=== PATIENT | male | born 1980 | race Caucasian/White ===

== ENCOUNTER → 2020-10-17 12:04 | Outpatient (BNVA) | payer MEDICAID, SELFPAY | PROVIDERS: Family Provider Family Medicine; Visit Provider Psychiatry & Neurology Psychiatry | DX: F43.21 Adjustment disorder with depressed mood (principal); Z63.4 Disappearance and death of family member | CPT/HCPCS: 90792 ==

== ENCOUNTER → 2021-05-16 11:05 | Outpatient (BNVA) | payer BC, MEDICAID, SELFPAY | PROVIDERS: Family Provider Family Medicine; PCP Family Medicine; Visit Provider Emergency Medicine | DX: R00.2 Palpitations (principal); F17.200 Nicotine dependence, unspecified, uncomplicated; I49.3 Ventricular premature depolarization | CPT/HCPCS: 80053; 80061; 83880; 84443; 85025 ==

== ENCOUNTER → 2021-05-17 09:33 | Outpatient (BNVA) | payer BC, MEDICAID, SELFPAY | PROVIDERS: Family Provider Family Medicine; PCP Family Medicine; Visit Provider Family Medicine | DX: E11.9 Type 2 diabetes mellitus without complications (principal) | CPT/HCPCS: 83036 ==

== ENCOUNTER → 2021-08-19 09:20 | Outpatient (BNVA) | payer BC, MEDICAID, SELFPAY | PROVIDERS: Family Provider Family Medicine; PCP Family Medicine; Visit Provider Family Medicine | DX: E11.65 Type 2 diabetes mellitus with hyperglycemia (principal); I10 Essential (primary) hypertension | CPT/HCPCS: 80048; 83036 ==

== ENCOUNTER 2021-11-01 08:50 | Outpatient (CLI) | payer BC, MEDICAID, SELFPAY ==
[2021-11-01 10:29] VITALS: BMI 29.5
--- NOTE | 2021-11-01 10:31 | ECG_ITS ---
[facility] Test Date: 2021-11-01 Pat Name: Bruno Prince Department: Room: Gender: Male Snapper On: Zara Miles : 1980 Requested By: Jessica Browning Order Number: [id number] Brewer MD: Jessica Browning M.D. Interpretive Statements NAME OF STUDY: TREADMILL STRESS TEST INDICATION: Chest Pain Baseline blood pressure of 133/69 mm Hg, heart rate of 72 beats per minute and oxygen saturation of 96%. EKG showed sinus rhythm, normal axis with ST depression and T wave inversion in lead II, III, aVF. The patient exercised for 10 minutes 33 seconds on a standard Jg protocol. Patient attained a maximum heart rate of 165 beats per minute(91% of the maximum predicted heart rate) with a blood pressure at the peak exercise of 184/71 mm Hg. The EKG at the peak exercise revealed no significant ST-T wave changes. T wave becomes upright in lead II. Patient did not have any chest pain or any significant arrhythmis with the exercise. The study was terminated due to maximal effort and exertional fatigue. During the recovery phase, there were no new changes. Blood pressure at the end of the recovery phase was 128/69 mm Hg with a heart rate of 84 beats per minute and oxygen saturation of 92%. CONCLUSION: 1. Normal EKG response to treadmill exercise. Interpretation limited by baseline ST-T wave changes in inferior leads. 2. No exercise-induced chest pain or cardiac arrhythmia. 3. Excellent exercise tolerance, attained a maximum of 13.5 METs. Maximum VO2 of 47.3 mL/kg/min. 4. Baseline normal blood pressure with normal response to exercise. 5. Perfusion scan will be documented separately. Electronically Signed On 11-04-2021 18:25:45 CDT by Jessica Browning M.D. [id number]
[2021-11-01 11:11] VITALS: BP 121/63; PULSE 87
== END 2021-11-01 08:51 | disposition home or self-care (01) ==
PROVIDERS: Family Provider Family Medicine; PCP Family Medicine; Visit Provider Internal Medicine Cardiovascular Disease
DX: R07.9 Chest pain, unspecified (principal); R00.2 Palpitations; I49.3 Ventricular premature depolarization; Z82.49 Family history of ischemic heart disease and other diseases of the circulatory system; I10 Essential (primary) hypertension; E11.65 Type 2 diabetes mellitus with hyperglycemia; F51.02 Adjustment insomnia; E78.2 Mixed hyperlipidemia; F17.200 Nicotine dependence, unspecified, uncomplicated
CPT/HCPCS: 93017

== ENCOUNTER 2021-11-01 08:59 | Outpatient (CLI) | payer BC, MEDICAID, SELFPAY ==
--- NOTE | 2021-11-01 09:10 | USCV_ITS ---
Bruno Prince Age: 41 Gender: M : 1980 Exam Date: 11/01/2021 09:36 Ordering Phys: Jessica Browning MD ([email or web address]) Technologist: Danyell Kenyon Exam Location: [facility] – [place] Indication: IRREGULAR HEART RATE BP: 120 / 68 HR: 66 Rhythm: Sinus Technical Quality: Adequate MEASUREMENTS (Male / Female) Normal Values 2D ECHO LV Diastolic Diameter PLAX 5.1 cm 4.2 - 5.9 / 3.9 - 5.3 cm LV Systolic Diameter PLAX 2.8 cm LV Chamber Size 3.6 cm IVS Diastolic Thickness 1.1 cm 0.6 - 1.0 / 0.6 - 0.9 cm IVS Systolic Thickness 1.2 cm LVPW Diastolic Thickness 1.1 cm 0.6 - 1.0 / 0.6 - 0.9 cm LVPW Systolic Thickness 1.6 cm RV Chamber Size 3.6 cm LVOT Diameter 2.0 cm LV Ejection Fraction 2D Teich 76.4 % LV Ejection Fraction MOD 2C 57.1 % LV Ejection Fraction 2C AL 53.0 % LA Diameter 3.5 cm LA Width 4.2 cm LA Height 3.6 cm RA Width 3.7 cm RA Height 4.1 cm Aorta at Sinotubular Diameter 2.6 cm IVC Diameter 1.1 cm M-MODE Aortic Annulus Diameter 3.0 cm LA Ao Ratio MM 1.2 MV E Point Septal Separation 0.3 cm DOPPLER AV Peak Velocity 110.0 cm/s LVOT Peak Velocity 94.0 cm/s AV Area Cont Eq vti 3.0 cm squared AV Area Cont Eq pk 2.8 cm squared MV Area PHT 4.9 cm squared Mitral E to A Ratio 0.9 MV E' Velocity 41.5 cm/s Mitral E to MV E' Ratio 9.5 Mitral E to LV E' Lateral Ratio 8.5 Mitral E to LV E' Septal Ratio 10.9 TR Peak Velocity 186.9 cm/s TR Peak Gradient 14.0 mmHg TR Mean Velocity 148.9 cm/s TR Mean Gradient 9.5 mmHg TR Velocity Time Integral 44.4 cm TV Peak E Velocity 53.0 cm/s Right Atrial Pressure 3.0 mmHg Pulmonary Artery Systolic Pressu 17.0 mmHg PV Peak Velocity 65.0 cm/s RV Acceleration Time 0.1 s RV Ejection Time 0.4 s RV AcT/ET 0.4 FINDINGS Left Ventricle Normal left ventricular size, systolic function and wall thickness, with no regional wall motion abnormalities. Left ventricular ejection fraction is estimated at 57 %. Normal diastolic function. Right Ventricle Normal right ventricular size and systolic function. RVSP could not be calculated due to incomplete tricuspid regurgitation velocity profile. Right Atrium Normal right atrial size. Right atrial pressure estimated at 3 mmHg. Left Atrium Normal left atrial size. Mitral Valve Structurally normal mitral valve. No mitral valve stenosis. Trace mitral valve regurgitation. Aortic Valve Structurally normal trileaflet aortic valve. No aortic valve stenosis. No aortic valve regurgitation. Tricuspid Valve Structurally normal tricuspid valve. No tricuspid valve stenosis. Trace tricuspid valve regurgitation. Pulmonic Valve Pulmonic valve not well visualized. No pulmonary valve stenosis. Trace pulmonary valve regurgitation. Pericardium No pericardial effusion. Aorta Normal size aortic root and proximal ascending aorta. Normal- sized inferior vena cava with greater than 50% respiratory variation. CONCLUSIONS 1. Normal left ventricular size, systolic function and wall thickness, with no regional wall motion abnormalities. Left ventricular ejection fraction is estimated at 57 %. Normal diastolic function. 2. Normal right ventricular size and systolic function. 3. No significant valvular abnormality. 4. No prior similar studies to compare. Jessica Browning MD (Electronically Signed) Final Date: 04 Nov 2021 18:43 S
== END 2021-11-01 09:00 | disposition home or self-care (01) ==
PROVIDERS: Family Provider Family Medicine; PCP Family Medicine; Visit Provider Internal Medicine Cardiovascular Disease
DX: I25.10 Atherosclerotic heart disease of native coronary artery without angina pectoris (principal)
CPT/HCPCS: 93306

== ENCOUNTER → 2021-11-11 09:53 | Outpatient (BNVA) | payer BC, MEDICAID, SELFPAY | PROVIDERS: Family Provider Family Medicine; PCP Family Medicine; Visit Provider Family Medicine | DX: I10 Essential (primary) hypertension (principal); G47.00 Insomnia, unspecified; T78.40XA Allergy, unspecified, initial encounter; E78.2 Mixed hyperlipidemia; E11.65 Type 2 diabetes mellitus with hyperglycemia | CPT/HCPCS: 83036 ==

== ENCOUNTER → 2022-04-07 08:55 | Outpatient (BNVA) | payer BC, MEDICAID, SELFPAY | PROVIDERS: Family Provider Family Medicine; PCP Family Medicine; Visit Provider Family Medicine | DX: T78.40XA Allergy, unspecified, initial encounter (principal); E78.2 Mixed hyperlipidemia; I10 Essential (primary) hypertension; E11.9 Type 2 diabetes mellitus without complications; G47.00 Insomnia, unspecified; R00.2 Palpitations; F41.1 Generalized anxiety disorder; E11.65 Type 2 diabetes mellitus with hyperglycemia; K04.7 Periapical abscess without sinus; T78.40XD Allergy, unspecified, subsequent encounter; F51.02 Adjustment insomnia | CPT/HCPCS: 80053; 80061; 83036; 84443 ==

== ENCOUNTER → 2022-12-26 11:02 | Outpatient (BNVA) | payer BC, MEDICAID, SELFPAY | PROVIDERS: Family Provider Family Medicine; PCP Family Medicine; Visit Provider Family Medicine | DX: E11.65 Type 2 diabetes mellitus with hyperglycemia (principal); N50.89 Other specified disorders of the male genital organs; R53.83 Other fatigue; R39.11 Hesitancy of micturition; Z22.322 Carrier or suspected carrier of Methicillin resistant Staphylococcus aureus | CPT/HCPCS: 80053; 80061; 81000; 83036; 84153; 84443; 85025 ==

== ENCOUNTER → 2023-02-27 08:52 | Outpatient (BNVA) | payer BC, MEDICAID, SELFPAY | PROVIDERS: Family Provider Family Medicine; PCP Family Medicine; Referring Provider Family Medicine; Visit Provider Family Medicine | DX: E11.65 Type 2 diabetes mellitus with hyperglycemia (principal) | CPT/HCPCS: 83036 ==

== ENCOUNTER → 2023-04-02 11:02 | Outpatient (BNVA) | payer BC, MEDICAID, SELFPAY | PROVIDERS: Family Provider Family Medicine; PCP Family Medicine; Visit Provider Family Medicine | DX: E11.9 Type 2 diabetes mellitus without complications (principal); G47.00 Insomnia, unspecified; R00.2 Palpitations; F41.1 Generalized anxiety disorder; I10 Essential (primary) hypertension; E11.65 Type 2 diabetes mellitus with hyperglycemia; E78.2 Mixed hyperlipidemia; R53.83 Other fatigue; G47.10 Hypersomnia, unspecified | CPT/HCPCS: 82607; 82652; 83036; 84402; 84403 ==

== ENCOUNTER 2023-04-09 07:37 | Emergency (ER) | payer BC, MEDICAID, SELFPAY ==
[2023-04-09 07:46] VITALS: BP 133/76; PULSE 91; RESP 16; TEMP 36.9; O2SAT 94
--- NOTE | 2023-04-09 07:51 | ED_ITS ---
HPI - Abdominal Pain General: Chief Complaint: Abdominal Pain Stated Complaint: abd pain Time Seen by Provider: 04/09/23 07:40 Source: patient Mode of arrival: ambulatory History of Present Illness: 42-year-old male presents emergency clinic and left lower quadrant abdominal pain that began yesterday. No medication melena hematemesis cough cramps. No previous abdominal surgeries. He has had issues with diverticulitis in the past. Has not previously had a colonoscopy. No hematochezia melena hematemesis cough tremors noted dysuria urgency frequency or hematuria. No vomiting associated with this. MD elicited complaint: abdominal pain Onset (ago): day(s) (1) Pain Consistency: constant Location: LLQ Severity: mild Quality: cramping Radiation: none Exacerbating factors: nothing Relieving factors: nothing Associated Symptoms: Reports bloating, GI cramping, nausea, poor appetite and vomiting; Denies anorexia, belching, change in bowel habits, change in stool character, chills, coffee ground emesis, constipation, diarrhea, dyspepsia, dysuria, excessive flatus, fever(s), heartburn, hematochezia, hematuria, hematemesis, fecal incontinence, loose stools, melena and syncope Review of Systems 2 Const: Denies: fever(s) or chills Card: Denies: chest pain or syncope Resp: Denies: dyspnea GI: Reports: abdominal pain, nausea, vomiting, bloating and GI cramping; Denies: hematemesis, coffee ground emesis, heartburn, diarrhea, constipation, belching, excessive flatus, fecal incontinence, change in bowel habits, change in stool character, hematochezia or melena : Denies: dysuria, urinary frequency, urinary urgency or hematuria Musc: Denies: neck pain or back pain Skin/Breast: Denies: rash PFSH ED PFSH: Medical History Diabetes mellitus Heart palpitations Hyperlipemia, mixed Insomnia PVC (premature ventricular contraction) Smoking Family History Father CAD (coronary artery disease), Onset Age: 49 CABG, at 64 CHF exacerbation Social History Smoking and tobacco/nicotine status: former use of tobacco/nicotine Physical Exam Const: GENERAL APPEARANCE: cooperative and comfortable ORIENTATION/CONSCIOUSNESS: Yes awake, Yes oriented to person, Yes oriented to place and Yes oriented to time HENMT: COMMON NORMALS: normocephalic, atraumatic and hearing grossly normal bilaterally HEAD & SCALP: normocephalic and atraumatic Resp: COMMON NORMALS: normal respiratory effort, No retractions, No use of accessory muscles and clear to auscultation bilaterally AUSCULTATION: clear to auscultation bilaterally Cardio: COMMON NORMALS: regular rate, regular rhythm and No murmurs present (Cardio) RATE: regular rate RHYTHM: regular rhythm GI: COMMON NORMALS: No hepatosplenomegaly present AUSCULTATION: Yes normoactive bowel sounds PALPATION: Yes Tenderness to palpation present (GI) Details: LLQ, No Guarding due to palpation present (GI) and Yes No hepatosplenomegaly present Extremity: COMMON NORMALS: normal to inspection, capillary refill normal, no clubbing, cyanosis or edema, no calf tenderness and no pedal edema Neuro: SENSORIUM/ORIENTATION: Yes oriented to person, Yes oriented to place and Yes oriented to time Skin: COMMON NORMALS: no rashes or lesions noted GENERAL SKIN EXAM: no rashes or lesions noted Course Vital Signs: Vital signs: Vital Signs Temperature 98.4 F 04/09/23 07:46 Pulse Rate 93 04/09/23 08:00 Respiratory Rate 18 04/09/23 08:00 Blood Pressure 133/76 04/09/23 08:00 Pulse Oximetry 96 04/09/23 08:00 Oxygen Delivery Me thod Room Air 04/09/23 08:00 MDM - Abdominal Pain Medical Decision Making No peritoneal signs on exam white count not elevated. Treat for diverticulitis based on history and clinical exam recommend that he follow-up with his primary care doctor for possible colonoscopy. Start Cipro and Flagyl. Clear liquid diet for 48 hours promethazine hydrocodone for pain nausea and vomiting as needed recheck for any worsening or changes symptoms. Differential Diagnosis Likely abdominal pain, acute appendicitis, calculus of kidney, constipation, diverticulitis, gastroenteritis, pancreatitis and small bowel obstruction Medical Records I reviewed the patient's medical records. Lab Data I reviewed the patient's lab results. 04/09/23 07:48 04/09/23 07:48 Labs/Radiology: Laboratory Results WBC 10.84 10^3/uL (3.29-11.43) 04/09/23 07:48 RBC 5.26 10^6/uL (3.85-5.65) 04/09/23 07:48 Hgb 14.40 g/dL (11.27-16.99) 04/09/23 07:48 Hct 44.4 % (37-53) 04/09/23 07:48 MCV 84.4 fl (82-101) 04/09/23 07:48 MCH 27.4 pg (27-33) 04/09/23 07:48 MCHC 32.4 g/dL (30-55) 04/09/23 07:48 RDW 12.6 % (12.1-15.1) 04/09/23 07:48 Plt Count 266 10^3/cmm (157-399) 04/09/23 07:48 MPV 9.2 fL (7.4-10.4) 04/09/23 07:48 Neut % (Auto) 76.9 % 04/09/23 07:48 Lymph % (Auto) 11.7 % 04/09/23 07:48 [place] % (Auto) 10.3 % 04/09/23 07:48 Eos % (Auto) 0.1 % 04/09/23 07:48 Baso % (Auto) 0.4 % 04/09/23 07:48 Neut # (Auto) 8.33 10^3/uL (1.8-7.7) H 04/09/23 07:48 Lymph # (Auto) 1.3 10^3/uL (0.8-4.8) 04/09/23 07:48 [place] # (Auto) 1.1 10^3/uL (0.2-0.9) H 04/09/23 07:48 Eos # (Auto) 0.0 10^3/uL (0.0-0.8) 04/09/23 07:48 Baso # (Auto) 0.0 10^3/uL (0.0-0.1) 04/09/23 07:48 Nucleated RBC % (auto) 0 % 04/09/23 07:48 Nucleated RBCs # 0.0 /100WBC 04/09/23 07:48 Sodium 132 mmol/L (136-145) L 04/09/23 07:48 Potassium 4.4 mmol/L (3.5-5.1) 04/09/23 07:48 Chloride 96 mmol/L (98-107) L 04/09/23 07:48 Carbon Dioxide 23 mmol/L (22-29) 04/09/23 07:48 Anion Gap 17.4 (5-19) 04/09/23 07:48 BUN 12 mg/dL (6-20) 04/09/23 07:48 Creatinine 0.9 mg/dL (0.7-1.2) 04/09/23 07:48 GFR Calculation 93.0 mL/min (90-130) 04/09/23 07:48 Glucose 311 mg/dL (65-115) H 04/09/23 07:48 Calculated Osmolality 286 mOsm/kg (285-295) 04/09/23 07:48 Calcium 9.2 mg/dL (8.5-10.5) 04/09/23 07:48 Total Bilirubin 0.5 mg/dL (0.15-1.2) 04/09/23 07:48 AST 13 U/L (0-40) 04/09/23 07:48 ALT 30 U/L (0-41) 04/09/23 07:48 Alkaline Phosphatase 99 U/L (40-130) 04/09/23 07:48 Total Protein 7.2 g/dL (6.6-8.7) 04/09/23 07:48 Albumin 4.6 g/dL (3.5-5.2) 04/09/23 07:48 Globulin 2.6 g/dL (1.3-4.6) 04/09/23 07:48 Lipase 34 U/L (13-60) 04/09/23 07:48 Urine Color Yellow (Yellow) 04/09/23 08:20 Urine Appearance Clear (CLEAR) 04/09/23 08:20 Urine pH 6 (5-7) 04/09/23 08:20 Ur Specific [place] 1.010 (1.005-1.030) 04/09/23 08:20 Urine Protein Neg (Negative) 04/09/23 08:20 Urine Glucose (UA) Norm (Normal) 04/09/23 08:20 Urine Ketones Negative (Negative) 04/09/23 08:20 Urine Blood Neg (Negative) 04/09/23 08:20 Urine Nitrate Negative (Negative) 04/09/23 08:20 Urine Bilirubin Neg (Negative) 04/09/23 08:20 Urine Urobilinogen Norm mg/dL (Negative) 04/09/23 08:20 Ur Leukocyte Esterase Negative (Negative) 04/09/23 08:20 No radiology studies performed this visit Discharge Plan Discharge Patient Disposition: Home Clinical Impression: Diverticulitis Condition: Stable Prescriptions: New Cipro 500 mg tablet 500 mg PO BID Qty: 14 0RF metronidazole 500 mg tablet 500 mg PO BID 7 Days Qty: 14 0RF hydrocodone-acetaminophen 5-325 mg tablet 1 tab PO Q6H PRN (Reason: pain) Qty: 10 0RF ondansetron HCl 4 mg tablet 4 mg PO Q6H PRN (Reason: nausea and vomiting) Qty: 10 0RF No Action propranolol 10 mg tablet 10 mg PO BID PRN (Reason: anxiety) 30 Days Qty: 30 0RF glipizide 5 mg tablet extended release 24hr 5 mg PO DAILY 90 Days Qty: 90 1RF (DME) lancets [facility] [place] See Rx Instructions .ROUTE .MEDSUPPLY Qty: 100 11RF Rx Instructions: Used to test blood sugar once daily (DME) Blood Glucose Test Strip See Rx Instructions .ROUTE .MEDSUPPLY Qty: 50 11RF Rx Instructions: Used to test blood sugar once daily (DME) pen needle, diabetic [Comfort EZ Pen [place]] 33 gauge x 1/4 needle See Rx Instructions .ROUTE .MEDSUPPLY Qty: 100 2RF Rx Instructions: As directed, may change size, type as needed (DME) blood-glucose meter [OneTouch Verio Flex meter] [facility] [place] See Rx Instructions .ROUTE .COMPLEX Qty: 1 0RF Dose Instruction: USE TO TEST BLOOD SUGAR ONCE DAILY Rx Instructions: USE TO TEST BLOOD SUGAR ONCE DAILY atorvastatin 10 mg tablet 10 mg PO QPM Allergy Relief (fexofenadine) 180 mg tablet 180 mg PO QPM Rx Instructions: Take 1 tablet by mouth once daily trazodone 100 mg tablet 100 mg PO BEDTIME PRN (Reason: insomnia) metformin 1,000 mg tablet 1,000 mg PO BID lisinopril 10 mg tablet 10 mg PO QPM fluticasone propionate 50 mcg/actuation spray,suspension 1 spray intranasal BID acetaminophen 325 mg Capsule 650 mg PO QID PRN (Reason: Pain) Discharge Orders: Discharge ED (Routine); Ordered 04/09/23 Ordered By: Man Conde Referrals: Jenni Winchester MD [Primary Care Provider] - Patient Instructions: Diverticulitis (ED), Opioid Safety, Pain Management Coding Level of Care Code ED Vice President Media Relations for Deja Simmons
[2023-04-09 07:53] LABS: Basophils % 0.4 %; Eosinophils % 0.1 %; Hematocrit 44.4 % (37-53); Lymphocytes # 1.3 10^3/uL (0.8-4.8); Lymphocytes % 11.7 %; Mean Corpuscular HGB Conc 32.4 g/dL (30-55); Mean Corpuscular Hemoglobin 27.4 pg (27-33); Mean Corpuscular Volume 84.4 fl (82-101); Mean Platelet Volume 9.2 fL (7.4-10.4); Monocytes # 1.1 10^3/uL (0.2-0.9); Monocytes % 10.3 %; Neutrophils # 8.33 10^3/uL (1.8-7.7); Neutrophils % 76.9 %; Nucleated Red Blood Cells % 0 %; Platelet Count 266 10^3/cmm (157-399); Red Blood Count 5.26 10^6/uL (3.85-5.65); Red Cell Distribution Width 12.6 % (12.1-15.1); White Blood Count 10.84 10^3/uL (3.29-11.43)
[2023-04-09 08:00] VITALS: BP 133/76; PULSE 93; RESP 18; O2SAT 96
[2023-04-09] MEDS: ondansetron 2 mg/ML SDV 2 mL 4 MG IVP (08:08)
[2023-04-09] MEDS: sodium chloride 0.9% 1,000 ML 999 ML IV (08:08)
[2023-04-09 08:10] LABS: Alanine Aminotransferase 30 U/L (0-41); Albumin Level 4.6 g/dL (3.5-5.2); Alkaline Phosphatase 99 U/L (40-130); Anion Gap 17.4 (5-19); Aspartate Amino Transferase 13 U/L (0-40); Blood Urea Nitrogen 12 mg/dL (6-20); Calcium 9.2 mg/dL (8.5-10.5); Carbon Dioxide 23 mmol/L (22-29); Chloride 96 mmol/L (98-107); Globulin 2.6 g/dL (1.3-4.6); Glucose 311 mg/dL (65-115); Lipase 34 U/L (13-60); Osmolality Calculated 286 mOsm/kg (285-295); Potassium 4.4 mmol/L (3.5-5.1); Sodium 132 mmol/L (136-145); Total Bilirubin 0.5 mg/dL (0.15-1.2); Total Protein 7.2 g/dL (6.6-8.7)
[2023-04-09 08:26] LABS: Add Urine Microscopic? NO; Charge for UA Resulting for Rev
[2023-04-09 08:28] LABS: Bilirubin Urine Neg (Negative); Blood Urine Neg (Negative); Glucose Urine UA Norm (Normal); Ketones Urine Negative (Negative); Leukocyte Esterase Urine Negative (Negative); Nitrate Urine Negative (Negative); Protein Urine Neg (Negative); Urine Appearance Clear (CLEAR); Urine Color Yellow (Yellow); Urobilinogen Urine Norm (Negative); pH Urine 6 (5-7)
== END 2023-04-09 09:14 | disposition home or self-care (01) ==
PROVIDERS: Emergency Provider Family Medicine; PCP Family Medicine
DX: K57.92 Diverticulitis of intestine, part unspecified, without perforation or abscess without bleeding (principal); Z79.84 Long term (current) use of oral hypoglycemic drugs; E11.9 Type 2 diabetes mellitus without complications; E78.2 Mixed hyperlipidemia; Z87.891 Personal history of nicotine dependence
CPT/HCPCS: 36415; 80053; 81003; 83690; 85025; 96374; 99284; J2405; J7030

== ENCOUNTER 2023-05-13 13:00 | Outpatient (CLI) | payer BC, MEDICAID, SELFPAY | END 2023-05-13 13:01 | disposition home or self-care (01) | LOC: SLEEP 05-18 08:53 | PROVIDERS: PCP Family Medicine; Visit Provider Family Medicine | DX: G47.33 Obstructive sleep apnea (adult) (pediatric) (principal) | CPT/HCPCS: G0399 ==

== ENCOUNTER → 2023-07-31 08:58 | Outpatient (BNVA) | payer BC, MEDICAID, SELFPAY | PROVIDERS: PCP Family Medicine; Visit Provider Nurse Practitioner | DX: R20.0 Anesthesia of skin (principal); R20.2 Paresthesia of skin; E11.65 Type 2 diabetes mellitus with hyperglycemia; I10 Essential (primary) hypertension; E78.2 Mixed hyperlipidemia; Z76.89 Persons encountering health services in other specified circumstances | CPT/HCPCS: 83036 ==